=== PATIENT | female | born 1995 | race Caucasian/White ===

== ENCOUNTER → 2021-10-02 15:04 | Outpatient (BNVA) | payer BC, MEDICAID, SELFPAY | PROVIDERS: Family Provider Family Medicine; PCP Internal Medicine; Visit Provider Internal Medicine | DX: B19.20 Unspecified viral hepatitis C without hepatic coma (principal); R76.8 Other specified abnormal immunological findings in serum; R30.0 Dysuria | CPT/HCPCS: 80053; 81003; 82105; 85025; 86705; 86706; 87086; 87340; 87522; 87902 ==

== ENCOUNTER 2024-11-08 15:38 | Outpatient (CLI) | payer OTHER, BC, MEDICAID, SELFPAY ==
--- NOTE | 2024-11-08 15:45 | USCV_ITS ---
Adwoa Peng Age: 29 Gender: F : 1995 Exam Date: 11/08/2024 16:02 Ordering Phys: Tia Herman Technologist: LINDSEY Exam Location: [facility] [place] Indication: pain HISTORY: Upper extremity pain. PROCEDURES: Venous duplex imaging was performed in only the left upper extremity. FINDINGS: The veins of the left upper extremity are readily compressible with normal venous flow dynamics including spontaneous flow, respiratory phasic variation and augmentation. No evidence of deep vein thrombosis or superficial thrombophlebitis in the left upper extremity. CONCLUSIONS No evidence of thrombus of the left upper extremity veins. Lane Fowler MD (Electronically Signed) Final Date: 09 Nov 2024 10:10 S
== END 2024-11-08 15:39 | disposition home or self-care (01) ==
LOC: RAD 15:39
PROVIDERS: PCP Nurse Practitioner Family; Visit Provider Nurse Practitioner Family
DX: M79.602 Pain in left arm (principal)
CPT/HCPCS: 93971